=== PATIENT | female | born 1980 | race Caucasian/White ===

== ENCOUNTER 2019-10-21 11:50 | Outpatient (CLI) | payer SELFPAY ==
[2019-10-21 12:00] VITALS: BMI 39.7
--- NOTE | 2019-10-22 06:23 | OB.TRI.NOTE ---
History of Present Illness Date of Service: 10/21/19 Was patient seen by the physician?: Yes Reason For Visit: R/O LABOR / CRAMPING Date of Service: 10/21/19 Final CHANDLER: 12/24/19 Gestational age: 31 Weeks and 0 Days History of Present Illness: Patient presents with pelvic pressure. She had some ctxs on the drive here. Denies VB/LOF. Reports good FM. Allergies No Known Allergies Allergy (Verified 10/21/19 12:00) Physical Exam General: Alert, Oriented x3 Presentation: Unable to assess Cervix Dilation (cm): 0 Station: -3 - no palpable presenting part Effacement (%): 0 Impression/Plan 39yo female @ 30&6 with threatened PTL No evidence PTL F/u this week as scheduled
== END 2019-10-21 12:40 | disposition home or self-care (01) ==
LOC: WPOUT 11:57 → WP 11:57
PROVIDERS: Referring Provider Obstetrics & Gynecology; Visit Provider Obstetrics & Gynecology
DX: O47.03 False labor before 37 completed weeks of gestation, third trimester (principal); Z3A.31 31 weeks gestation of pregnancy
CPT/HCPCS: 59025; 59050; 99218; G0378

== ENCOUNTER 2019-10-24 11:08 | Outpatient (RCR) | payer SELFPAY | END 2019-10-27 23:59 | LOC: DC 11:08 | PROVIDERS: Visit Provider Obstetrics & Gynecology | DX: Z71.3 Dietary counseling and surveillance (principal); O24.410 Gestational diabetes mellitus in pregnancy, diet controlled | CPT/HCPCS: 97802; G0108 ==

== ENCOUNTER 2019-11-07 10:00 | Outpatient (RCR) | payer SELFPAY | END 2019-11-07 23:59 | disposition home or self-care (01) | LOC: DC 10:00 | PROVIDERS: Visit Provider Obstetrics & Gynecology | DX: Z71.3 Dietary counseling and surveillance (principal); O24.410 Gestational diabetes mellitus in pregnancy, diet controlled ==